=== PATIENT | female | born 1995 | race Two or more races ===

== ENCOUNTER → 2025-07-14 | Outpatient (CLI) | payer OTHER, SELFPAY ==
--- NOTE | 2025-07-14 11:15 | XR_ITS ---
Examination: Breast ultrasound, unilateral, right complete Date and time of exam: July 14, 2025, 1117 hours INDICATIONS: Pain in the right breast upper outer region, 2 months, lump in the 7 o'clock position right breast noticed beginning 1 week ago, family history of breast cancer Technique: Real-time nance scale ultrasonographic imaging performed right breast including all 4 quadrants as well as nipple retroareolar and axillary region. Findings: 10:00 nodule circumscribed 3 x 3 mm IMPRESSION: BI-RADS category 0: Incomplete: Need additional imaging evaluation Consider diagnostic mammography follow-up
== END | disposition home or self-care (01) ==
LOC: CDIM 10:54
PROVIDERS: PCP Nurse Practitioner Family; Referring Provider Nurse Practitioner Family; Visit Provider Nurse Practitioner Family
DX: R92.8 Other abnormal and inconclusive findings on diagnostic imaging of breast (principal)
CPT/HCPCS: 76641